=== PATIENT | female | born 1985 | race Hispanic/Latino ===

== ENCOUNTER 2017-12-05 14:00 | Emergency (ER) | payer BC ==
[2017-12-05 14:28] LABS: BASOPHILS % (AUTO) 0.3 % (0.0-5.0); EOSINOPHILS % (AUTO) 1.1 % (0.0-8.0); HEMATOCRIT 37.5 % (36-48); LYMPHOCYTES % (AUTO) 16.3 % (21.0-51.0); MEAN CORPUSCULAR HEMOGLOBIN 19.2 pg (27.0-33.0); MEAN CORPUSCULAR HGB CONC 31.1 g/dL (32.0-36.0); MEAN CORPUSCULAR VOLUME 61.8 fL (79-99); MONOCYTES % (AUTO) 6.6 % (3.0-13.0); NEUTROPHILS % (AUTO) 75.7 % (40.0-77.0); PLATELET COUNT (AUTO) 345 K/uL (130-400); RED BLOOD CELL COUNT(AUTO) 6.08 MIL/uL (4.00-5.50); WHITE BLOOD COUNT (AUTO) 11.3 K/uL (4.8-10.8)
[2017-12-05 14:36] LABS: CREATININE 0.9 mg/dL (0.5-1.5); POTASSIUM 3.6 mmol/L (3.5-5.1)
== END 2017-12-05 15:12 | disposition home or self-care (01) ==
LOC: EDH 14:00
DX: F41.1 Generalized anxiety disorder (principal); R20.2 Paresthesia of skin; N93.9 Abnormal uterine and vaginal bleeding, unspecified
CPT/HCPCS: 36415; 80048; 84703; 85025; 86900; 86901

== ENCOUNTER 2019-03-09 07:48 | Day surgery (SDC) | payer BC ==
[2019-03-08 14:53] VITALS: BP 110/76
[2019-03-08 15:35] LABS: BASOPHILS % (AUTO) 0.9 % (0.0-5.0); EOSINOPHILS % (AUTO) 3.4 % (0.0-8.0); HEMATOCRIT 38.6 % (36-48); MEAN CORPUSCULAR HGB CONC 32.1 g/dL (32.0-36.0); MEAN CORPUSCULAR VOLUME 65.5 fL (79-99); MONOCYTES % (AUTO) 7.3 % (3.0-13.0); NEUTROPHILS % (AUTO) 58.4 % (40.0-77.0); PLATELET COUNT (AUTO) 272 K/uL (130-400); RED BLOOD CELL COUNT(AUTO) 5.89 MIL/uL (4.00-5.50); RED CELL DISTRIBUTION WIDTH 14.8 % (11.0-15.5); WHITE BLOOD COUNT (AUTO) 9.2 K/uL (4.8-10.8)
[~2019-03-09] VITALS: Ht 144.8 cm; Wt 93.0 kg
[2019-03-09] VITALS (13 sets, daily range): BP systolic 100–137; BP diastolic 61–86
[~2019-03-09 07:48] MED LIST: BIRTH CONTROL PO; PNV1TABL17 PO
[2019-03-09] MEDS ORDERED: LACTATED RINGERS 1000ML 1,000 ML IV ONE (09:46)
[2019-03-09] MEDS ORDERED: CALDOLOR 800MG+NS 250ML 250 ML IV ONE (10:42)
[2019-03-09] MEDS ORDERED: IOHEXOL-350 50ML VIAL IV ONE (12:02)
[2019-03-09] MEDS ORDERED: DEXAMETHASONE SOD PHOSPHATE 10MG/ML 1ML VIAL ONE (12:51)
[2019-03-09] MEDS ORDERED: PROPOFOL 10 MG/ML 20ML VIAL IV ONE (12:51)
[2019-03-09] MEDS ORDERED: LIDOCAINE PF 2% 5ML ABBOJECT ONE (12:51)
[2019-03-09] MEDS ORDERED: ONDANSETRON HCL 4 MG/2 ML VIAL ONE (12:51)
[2019-03-09] MEDS ORDERED: FENTANYL CITRATE PF 50 MCG/1 ML 5ML AMP IV ONE (12:52)
[2019-03-09] MEDS ORDERED: MIDAZOLAM HCL 1 MG/ML 2ML VIAL ONE (12:52)
[2019-03-09] MEDS ORDERED: GLYCOPYRROLATE 1 MG/5 ML SYRINGE ONE (12:52)
[2019-03-09] MEDS ORDERED: ROCURONIUM 10MG/1ML SYR 10 MG/ML ML ONE (12:52)
[2019-03-09] MEDS ORDERED: NEOSTIGMINE 5MG/5ML SYR IV ONE (12:52)
[2019-03-09] MEDS ORDERED: METHYLENE BLUE 10 MG/ML AMP ONE (13:29)
[2019-03-09] MEDS ORDERED: BUPIVACAINE/PF 0.25% 30ML VIAL IJ ONE (14:16)
[2019-03-09] MEDS ORDERED: MEPERIDINE-PF 25 MG/ML SYG ONE (15:05)
--- NOTE | 2019-03-09 16:00 | NUR ---
PT. LEFT VIA WHEELCHAIR PVT CAR. D/C INSTRUCTION AND RX GIVEN TO SPOUSE. NO COMPLICATIONS UPON D/C
== END 2019-03-09 16:30 | disposition home or self-care (01) ==
LOC: DAH 07:48
DX: N94.6 Dysmenorrhea, unspecified (principal); N92.0 Excessive and frequent menstruation with regular cycle; N92.5 Other specified irregular menstruation; N80.2 Endometriosis of fallopian tube; E66.01 Morbid (severe) obesity due to excess calories; Z68.41 Body mass index [BMI] 40.0-44.9, adult; Z90.49 Acquired absence of other specified parts of digestive tract; Z98.890 Other specified postprocedural states; Z72.89 Other problems related to lifestyle; Z79.899 Other long term (current) drug therapy; F12.11 Cannabis abuse, in remission; Z83.3 Family history of diabetes mellitus; Z82.49 Family history of ischemic heart disease and other diseases of the circulatory system
CPT/HCPCS: 36415; 49320; 58340; 58558; 74740; 84703; 85025; 86850; 86870; 86900; 86901; 86905 ×2; 86922; 88305; A4215 ×2; A4221; A4222; A4223; A4344; A4663; A6260; C1769 ×2; G0168; J1100; J1741; J2001; J2175; J2250; J2405; J2704; J2710; J3010; J3490 ×2; J7030; J7120; Q9967; Q9968; 96366